=== PATIENT | male | born 1945 | race Two or more races ===

== ENCOUNTER 2017-12-02 08:35 | Outpatient (CLI) | payer OTHER | END 2017-12-02 13:36 | disposition home or self-care (01) | LOC: MRI 08:35 | DX: R41.3 Other amnesia (principal); D49.6 Neoplasm of unspecified behavior of brain; G40.909 Epilepsy, unspecified, not intractable, without status epilepticus | CPT/HCPCS: 70553; A9579 ==

== ENCOUNTER 2018-02-27 07:10 | Outpatient (CLI) | payer OTHER | END 2018-02-27 13:55 | disposition home or self-care (01) | LOC: TOM 07:10 | DX: K40.91 Unilateral inguinal hernia, without obstruction or gangrene, recurrent (principal); E03.8 Other specified hypothyroidism; E04.1 Nontoxic single thyroid nodule ==

== ENCOUNTER → 2022-11-06 10:49 | Outpatient (CLI) | payer OTHER ==
[~2022-11-06 10:49] MED LIST: ALDACTONE50 MG PO; AMLODIPINE BESYL5 MG PO; FENOFIBRATE48 MG; FENOFIBRATE48 MG PO; FOLIC ACID1 MG PO; HYDRALAZINE HCL50 MG; IRBESARTAN-HCT1 EAC1; LEVOTHYROXINE25 MCG PO; METOPROLOL SUCC50 MG; TERAZOSIN HCL5 MG; ZOCOR20 MG PO
== END | disposition home or self-care (01) ==
LOC: LAB 10:49
PROVIDERS: ATTEND Internal Medicine
DX: R10.9 Unspecified abdominal pain (principal)

== ENCOUNTER → 2022-11-07 | Outpatient (CLI) | payer OTHER | END | disposition home or self-care (01) | LOC: SONOGRAMA 07:40 | PROVIDERS: ATTEND Internal Medicine | DX: R10.9 Unspecified abdominal pain (principal) ==

== ENCOUNTER 2025-05-18 10:32 | Outpatient (CLI) | payer OTHER | END 2025-05-18 10:35 | disposition home or self-care (01) | LOC: SONOGRAMA 10:32 | PROVIDERS: ATTEND Internal Medicine | DX: E03.8 Other specified hypothyroidism (principal); E04.2 Nontoxic multinodular goiter ==